=== PATIENT | male | born 1990 | race Caucasian/White ===

== ENCOUNTER 2016-10-10 02:45 | Emergency (ER) | payer BC, OTHER ==
[~2016-10-10] VITALS: Ht 180.3 cm; Wt 100.0 kg
[2016-10-10] MEDS ORDERED: HYDROCODONE/ACETAMINOPHEN 5-325 MG TABLET PO ONE (04:00)
[2016-10-10] MEDS ORDERED: IBUPROFEN 600 MG TABLET PO ONE (04:00)
[2016-10-10] MEDS ORDERED: BACITRACIN 0.9 GM PACKET OINTMENT TP ONE (04:15)
[2016-10-10 05:11] VITALS: BP 136/84
== END 2016-10-10 05:27 | disposition home or self-care (01) ==
LOC: EMS 02:46
DX: S16.1XXA Strain of muscle, fascia and tendon at neck level, initial encounter (principal); S63.501A Unspecified sprain of right wrist, initial encounter; S63.502A Unspecified sprain of left wrist, initial encounter; F12.90 Cannabis use, unspecified, uncomplicated; V49.88XA Car occupant (driver) (passenger) injured in other specified transport accidents, initial encounter; Y93.89 Activity, other specified; Y92.89 Other specified places as the place of occurrence of the external cause; Y99.8 Other external cause status
CPT/HCPCS: 72050; 72070; 99284